=== PATIENT | male | born 1995 | race Two or more races ===

== ENCOUNTER 2019-12-24 12:40 | Emergency (ER) | payer OTHER ==
[~2019-12-24] VITALS: Ht 185.4 cm; Wt 89.1 kg
[2019-12-24 12:50] VITALS: BP 138/75
[2019-12-24] MEDS ORDERED: CEPH-264 PO (13:15)
--- NOTE | 2019-12-24 13:15 | PHYS DOC ---
Past History Past Medical History: Migraines Past Surgical History: Appendectomy Additional Past Surgical Histo: left wrist Alcohol Use: None General Adult EDM: Chief Complaint: INSECT BITE HPI: HPI: 24-year-old male presents after spider bite on his posterior neck. The patient knows it is a spider because he killed it and he brought it in with him in a cup. The patient is allergic to penicillin and shellfish. His penicillin allergy was a rash and it was many years ago. Patient denies any other symptoms. The area around the bite is swollen. He denies fever or chills. Review of Systems: Review of Systems: Constitutional: Denies fever or chills Eyes: Denies change in visual acuity HENT: Denies nasal congestion or sore throat Respiratory: Denies cough or shortness of breath Cardiovascular: Denies chest pain or edema GI: Denies abdominal pain, nausea, vomiting, bloody stools or diarrhea : Denies dysuria Musculoskeletal: Denies back pain or joint pain Integument: Rash posterior neck Neurologic: Denies headache, focal weakness or sensory changes Endocrine: Denies polyuria or polydipsia Lymphatic: Denies swollen glands Psychiatric: Denies depression or anxiety Allergies: Allergies: Allergies Coded Allergies Type Severity Reaction Last Updated Verified Penicillins Allergy Intermediate 12/24/19 Yes shellfish derived Allergy Intermediate 12/24/19 Yes Physical Exam: PE: Constitutional: Well developed, well nourished, no acute distress, non-toxic appearance. [] HENT: Normocephalic, atraumatic, bilateral external ears normal, oropharynx moist, no oral exudates, nose normal. [] Eyes: PERRLA, EOMI, conjunctiva normal, no discharge. [] Neck: Normal range of motion, no tenderness, supple, no stridor. [] Cardiovascular:Heart rate regular rhythm, no murmur [] Lungs & Thorax: Bilateral breath sounds clear to auscultation [] Abdomen: Bowel sounds normal, soft, no tenderness, no masses, no pulsatile masses. [] Skin: Erythematous, not warm, raised area of the posterior neck, 3 cm in diameter. [] Back: No tenderness, no CVA tenderness. [] Extremities: No tenderness, no cyanosis, no clubbing, ROM intact, no edema. [] Neurologic: Alert and oriented X 3, normal motor function, normal sensory function, no focal deficits noted. [] Psychologic: Affect normal, judgement normal, mood normal. [] Current Patient Data: Vital Signs: Vital Signs Date Time Temp Pulse Resp B/P (MAP) Pulse Ox O2 Delivery O2 Flow Rate FiO2 12/24/19 12:50 98.2 65 16 138/75 (96) 96 Room Air EKG: EKG: [] Radiology/Procedures: Radiology/Procedures: [] Heart Score: Risk Factors: Risk Factors: DM, Current or recent (<one month) smoker, HTN, HLP, family history of CAD, obesity. Risk Scores: Score 0 - 3: 2.5% MACE over next 6 weeks - Discharge Home Score 4 - 6: 20.3% MACE over next 6 weeks - Admit for Clinical Observation Score 7 - 10: 72.7% MACE over next 6 weeks - Early Invasive Strategies Course & Med Decision Making: Course & Med Decision Making Pertinent Labs and Imaging studies reviewed. (See chart for details) The patient does appear to have a spider bite on his posterior neck. It appears to just be a localized reaction at this time. An abundance of caution I will cover him with Keflex prophylaxis for infection. He is stable for discharge at this time. [] Dragon Disclaimer: Dragon Disclaimer: This electronic medical record was generated, in whole or in part, using a voice recognition dictation system. Departure Departure: Impression: Primary Impression: Accidental spider bite Disposition: 01 DC HOME SELF CARE/HOMELESS Condition: STABLE Referrals: LEXY CAUSEY DO (PCP) Patient Instructions: Spider Bite, [id number] Scripts Cephalexin (KEFLEX) 500 Mg Capsule 1 CAP PO BID for spider bite for 7 Days, #14 CAP 0 Refills Prov: AZEB LEWIS DO 12/24/19 AZEB LEWIS DO Dec 24, 2019 13:15
== END 2019-12-24 13:24 | disposition home or self-care (01) ==
LOC: ER 12:40
DX: T63.301A Toxic effect of unspecified spider venom, accidental (unintentional), initial encounter (principal); G43.909 Migraine, unspecified, not intractable, without status migrainosus; Y92.89 Other specified places as the place of occurrence of the external cause
CPT/HCPCS: 99283

== ENCOUNTER 2020-01-04 14:33 | Emergency (ER) | payer OTHER ==
[~2020-01-04] VITALS: Ht 185.4 cm; Wt 92.4 kg
[~2020-01-04 14:33] MED LIST: CEPH-264 PO
[2020-01-04 14:41] VITALS: BP 146/57
--- NOTE | 2020-01-04 15:54 | PHYS DOC ---
Past History Past Medical History: Migraines Past Surgical History: Appendectomy Additional Past Surgical Histo: left wrist Additional Smoking Information: Vapes daily Alcohol Use: None Adult General Chief Complaint Chief Complaint: Neck Pain HPI HPI Patient is a 24-year-old male patient who presents the ED today complaining of a swollen area of the right lateral neck that he noted this morning. He states yesterday he developed some mild pain on touching the right lateral neck then this morning woke up with a swollen area. Denies any fever, coughing, conges tion, sore throat. Review of Systems Review of Systems Constitutional: Denies fever or chills [] Eyes: Denies change in visual acuity, redness, or eye pain [] HENT: reports swollen area on the right lateral neck. Denies nasal congestion or sore throat [] Respiratory: Denies cough or shortness of breath [] Cardiovascular: No additional information not addressed in HPI [] GI: Denies abdominal pain, nausea, vomiting, bloody stools or diarrhea [] : Denies dysuria or hematuria [] Musculoskeletal: Denies back pain or joint pain [] Integument: Denies rash or skin lesions [] Neurologic: Denies headache, focal weakness or sensory changes [] All other systems were reviewed and found to be within normal limits, except as documented in this note. Allergies Allergies Allergies Coded Allergies Type Severity Reaction Last Updated Verified Penicillins Allergy Intermediate 12/24/19 Yes shellfish derived Allergy Intermediate 12/24/19 Yes Physical Exam Physical Exam Constitutional: Well developed, well nourished, no acute distress, non-toxic appearance. [] HENT: Normocephalic, atraumatic, bilateral external ears normal, oropharynx moist, no oral exudates, nose normal. [] Right lateral cervical spine with an indurated area approximately 2 x 2 cm. The area is firm, no fluctuance, no erythema, no tenderness on exam. Airways open. This appears to be an enlarged lymph node. Eyes: PERRLA, EOMI, conjunctiva normal, no discharge. [] Neck: Normal range of motion, no tenderness, supple, no stridor. [] Cardiovascular:Heart rate regular rhythm, no murmur [] Lungs & Thorax: Bilateral breath sounds clear to auscultation [] Abdomen: Bowel sounds normal, soft, no tenderness, no masses, no pulsatile masses. [] Skin: Warm, dry, no erythema, no rash. [] Back: No tenderness, no CVA tenderness. [] Extremities: No tenderness, no cyanosis, no clubbing, ROM intact, no edema. [] Neurologic: Alert and oriented X 3, normal motor function, normal sensory function, no focal deficits noted. [] Psychologic: Affect normal, judgement normal, mood normal. [] Current Patient Data Vital Signs Vital Signs Date Time Temp Pulse Resp B/P (MAP) Pulse Ox O2 Delivery O2 Flow Rate FiO2 01/04/20 14:41 98.0 78 18 146/57 (86) 100 EKG EKG [] Radiology/Procedures Radiology/Procedures [] Heart Score Risk Factors: Risk Factors: DM, Current or recent (<one month) smoker, HTN, HLP, family history of CAD, obesity. Risk Scores: Risk Factors: DM, Current or recent (<one month) smoker, HTN, HLP, family history of CAD, obesity. Course & Med Decision Making Course & Med Decision Making Pertinent Labs and Imaging studies reviewed. (See chart for details) This is a 24-year-old male patient presented to the ED today with an enlarged lymph node on the right lateral cervical spine. On the differential is included in the decision making for strep throat infections, reactive lymphadenopathy, and mononucleosis among other illnesses. Negative rapid strep. Negative mononucleosis. This is likely a reactive lymph node. Patient was discharged to home. Given prescription for prednisone and ibuprofen. Instructed to follow- up with your primary care doctor or ENT in 1 week if symptoms persist. Instructed to return to the ED at any point symptoms worsen Dragon Disclaimer Dragon Disclaimer This electronic medical record was generated, in whole or in part, using a voice recognition dictation system. Departure Departure: Impression: Primary Impression: Lymphadenopathy, cervical Disposition: 01 DC HOME SELF CARE/HOMELESS Condition: STABLE Referrals: LEXY CAUSEY DO (PCP) follow up in 1-2 weeks Additional Instructions: You were evaluated in the emergency room for an enlarged lymph nodes, this is likely a reactive lymph node. You were tested for strep which was negative, you were tested for mononucleosis which was negative. We encourage you to take the prescribed medications as ordered. Follow-up with the provided ENT in 1 to 2 weeks or your primary care doctor. Scripts Ibuprofen (Ibu) 600 Mg Tablet 1 TAB PO Q6HRS for 7 Days, #28 TAB 0 Refills Prov: BEST NARVAEZ APRN 01/04/20 Prednisone (PREDNISONE) 50 Mg Tablet 1 TAB PO DAILY, #5 TAB Prov: BEST NARVAEZ APRN 01/04/20 BEST NARVAEZ APRN Jan 04, 2020 15:54
[2020-01-04 16:05] LABS: MONONUCLEOSIS PATIENT NEGATIVE (NEGATIVE)
[2020-01-04] MEDS ORDERED: PRED50TA PO (16:12)
[2020-01-04] MEDS ORDERED: IBUP-571 PO (16:12)
== END 2020-01-04 16:44 | disposition home or self-care (01) ==
LOC: ER 14:33
DX: R59.0 Localized enlarged lymph nodes (principal); G43.909 Migraine, unspecified, not intractable, without status migrainosus; F17.200 Nicotine dependence, unspecified, uncomplicated; Z88.0 Allergy status to penicillin; Z91.013 Allergy to seafood
CPT/HCPCS: 86308; 87070; 87880; 99283